=== PATIENT | male | born 1985 | race Caucasian/White ===

== ENCOUNTER 2016-07-29 21:27 | Emergency (ER) | payer BC, MEDICARE ==
[2016-07-29] MEDS ORDERED: NEB-ALBUTEROL 2.5 MG/3 ML INH ONE (22:58)
[2016-07-29] MEDS ORDERED: KETOROLAC 60 MG/2 ML VIAL IM ONE (23:02)
[2016-07-29] MEDS ORDERED: PREDNISONE 50 MG TAB ONE (23:02)
== END 2016-07-29 23:42 | disposition home or self-care (01) ==
LOC: ER 21:27
CPT/HCPCS: 71020; 94640; 96372

== ENCOUNTER 2016-08-10 01:10 | Emergency (ER) | payer BC, MEDICARE ==
[2016-08-10] MEDS ORDERED: PREDNISONE 10 MG TAB ONE (02:49)
[2016-08-10] MEDS ORDERED: ORPHENADRINE 60 MG/2 ML AMP ONE (02:50)
[2016-08-10] MEDS ORDERED: Hydrocodone/APAP 10/325 MG TAB ONE (02:50)
== END 2016-08-10 04:24 | disposition home or self-care (01) ==
LOC: ER 01:10
DX: S39.012A Strain of muscle, fascia and tendon of lower back, initial encounter (principal); R30.0 Dysuria; R07.89 Other chest pain
CPT/HCPCS: 36415; 80053; 81001; 82553; 84484; 85025; 85610; 85730; 87088; 93005; 96374